=== PATIENT | female | born 1975 | race Caucasian/White ===

== ENCOUNTER 2017-03-22 07:07 | Observation (INO) | payer OTHER ==
[~2017-03-22] VITALS: Ht 172.7 cm; Wt 51.4 kg
[2017-03-22 08:01] LABS: BASOPHIL COUNT 0.1 K/uL (0-0.1); EOSINOPHIL (%) 1.9 % (0-5); EOSINOPHIL COUNT 0.3 K/uL (0-0.3); IMMATURE GRANULOCYTE (%) 0.3 % (0.0-0.7); INSTRUMENT ABS NEUTROPHIL CT 9.9 K/uL; LYMPHOCYTE COUNT 1.8 K/uL (1.0-2.8); MCH 30.9 PG (29.0-34.0); MCV 90.7 FL (83-99); MEAN PLAT.VOLUME 9.3 uM^3 (9.5-12.4); MONOCYTE (%) 7.3 % (3-12); NEUTROPHIL (%) 76.1 % (45-76); NEUTROPHIL COUNT 9.9 K/uL (1.8-6.4); PLATELET COUNT 235 K/uL (156-360); RBC DIS.WIDTH-CV 13.7 % (11.8-14.6); RBC DIS.WIDTH-SD 45.8 % (39-53); RED BLOOD COUNT 4.63 M/uL (3.80-5.20); WHITE BLOOD COUNT 13.1 K/uL (4.1-10.2)
[2017-03-22 08:37] LABS: ADD MIUA? YES; BILIRUBIN NEGATIVE; BLOOD SMALL; COLOR STRAW ((YELLOW)); GLUCOSE (STRIP) NEGATIVE; KETONES NEGATIVE; LEUKOCYTES NEGATIVE; NITRITE NEGATIVE; PROTEIN (STRIP) NEGATIVE; SPECIFIC GRAVITY 1.004 (1.000-1.030); UROBILINOGEN 0.2 MG/DL (0.2-1.0)
[2017-03-22 08:41] LABS: ALKALINE PHOSPHATASE 45 IU/L (3-129); ANION GAP 6 MEQ/L (2-14); CHLORIDE 106 MEQ/L (99-109); GFR ESTIMATE (CALCULATED) > 59 mL/min/; GLUCOSE 96 mg/dL (70-99); SAMPLE HEMOLYSIS CHECK 0; SAMPLE ICTERIC CHECK 0; SAMPLE LIPEMIA CHECK 0; SODIUM 139 MEQ/L (136-147); TOTAL BILIRUBIN 0.4 MG/DL (0.0-1.0); UREA NITROGEN (BUN) 12 mg/dL (9-23)
[2017-03-22 08:44] LABS: BACTERIA RARE /HPF; EPITHELIAL CELLS RARE /HPF; MUCUS NONE SEEN /LPF; RED BLOOD CELLS 0-5 /HPF (0-5); UCUL ADDED? NO; WHITE BLOOD CELLS 0-5 /HPF (0-5)
[2017-03-22 09:54] LABS: QUANTITATIVE HCG < 4.0 MIU/ML
[2017-03-22] MEDS ORDERED: MELATONIN3 MG PO (10:20)
[2017-03-22] MEDS ORDERED: MULTI VITAMIN1 EACH PO (10:20)
[2017-03-22] MEDS ORDERED: MEDROL DOSEPAK4 MG PO (10:22)
[2017-03-22 11:34] LABS: HDL CHOLESTEROL 44 MG/DL (Desirable>=50); LDL CHOLESTEROL 76 mg/dL (Desirable<100); NON-HDL CHOLESTEROL 94 mg/dL (Desirable<160); TOTAL CHOLESTEROL 138 mg/dL (Desirable<200); TRIGLYCERIDES 91 MG/DL (Normal: <150)
[2017-03-22 12:11] LABS: AMPHETAMINES QUANT VALUE 0 NG/ML; BARBITUATES QUANT VALUE 0 NG/ML; BENZODIAZEPINES QUANT VALUE 0 NG/ML; BENZODIAZEPINES, URINE SCREEN Negative (200 ng/mL); MARIJUANA QUANT VALUE 0 NG/ML; OPIATES QUANTITATIVE VALUE 0 NG/ML; PHENCYCLIDINE QUANT VALUE 0 NG/ML
[2017-03-22 12:42] VITALS: BP 95/58
[2017-03-22 13:13] LABS: Estimated Average Glucose 120 mg/dL (70-123); HEMOGLOBIN A1c (GLYCOHEMOGLOB) 5.8 % HGB (Below 5.7)
[2017-03-22 15:55] VITALS: BP 116/66
[2017-03-22 19:03] VITALS: BP 111/71
[2017-03-22 20:42] LABS: CANDIDA DNA PROBE NEGATIVE; GARDNERELLA DNA PROBE POSITIVE; INTERNAL CONTROL VALID? YES
[2017-03-23 00:06] VITALS: BP 94/55
[2017-03-23 03:49] VITALS: BP 96/57
[2017-03-23 07:24] VITALS: BP 117/69
[2017-03-23] MEDS ORDERED: METRONIDAZOLE500 MG PO (08:32)
[2017-03-24 19:42] LABS: ACETYLCHOLINE RECP BIND ABY+ <0.30 nmol/L (<=0.30)
[2017-03-25 13:01] LABS: CHLAMYDIA TRACHOMATIS NEGATIVE; NEISSERIA GONORRHOEAE NEGATIVE
[2017-03-26 21:48] LABS: Neutrophil Cytoplasmic Aby Negative (Negative)
== END 2017-03-23 10:21 | disposition home or self-care (01) ==
LOC: EME 07:07 → EDOF 10:10 → ENRESERV 10:30 → EDOF 10:33 → ENRESERV 11:00 → 5WEST 12:34 → ENPENDDIS 03-23 → 5WEST 03-23 10:21
PROVIDERS: Hospitalist; Obstetrics & Gynecology; Physician Assistant
DX: H53.2 Diplopia (principal); G47.00 Insomnia, unspecified; R63.4 Abnormal weight loss; F17.210 Nicotine dependence, cigarettes, uncomplicated; N89.8 Other specified noninflammatory disorders of vagina; B96.89 Other specified bacterial agents as the cause of diseases classified elsewhere; Z80.8 Family history of malignant neoplasm of other organs or systems; R64 Cachexia
CPT/HCPCS: 70450; 70553; 80053; 80061; 80306 90; 81003; 83036; 84238 90; 84439; 84443; 84481; 84702; 85025; 86021 90; 86038; 87480; 87491; 87510; 87591; 87660; 93005; 99281; 99285; G0378